=== PATIENT | male | born 1960 | race Caucasian/White ===

== ENCOUNTER → 2017-04-08 | Day surgery (SDC) | payer OTHER ==
[2017-04-08] VITALS (7 sets, daily range): BP systolic 121–142; BP diastolic 68–78; PULSE 60; RESP 16–18; O2SAT 93–95
[~2017-04-08] MED LIST: 0.9% Sodium Chloride 1,000 ML IV PRN; 0.9% Sodium Chloride 1,000 ML IV SCH; 0.9% Sodium Chloride 250 ML ONE; AMIO100T4 PO; ASPI-973 PO; Bupivacaine-MPF 0.5% 30 mL Inj ONE; FLEC100T2 PO; FUR20 PO; Heparin 10,000 Unit/1,000 mL NS Premix IV ONE; LISI-571 PO; METO100T3 PO; MULT-1104 PO; Ondansetron 2 mg/mL 2 mL Inj IVPUSH PRN; Vancomycin 1,000 mg Inj ONE; Vancomycin Inj 1,000 MG in IV Premix 1 EACH IV ONE; Water for Injection 50 ML IV ONE; fentaNYL-PF 50 mCg/mL 2 mL Inj ONE
[2017-04-08 08:44] LABS: BASOPHILS % (AUTO) 0.5 % (0-3); EOSINOPHILS % (AUTO) 3.1 % (0-5); MONOCYTES % (AUTO) 8.9 % (4-12); Mean Corpuscular Hemoglobin 36.1 pg (27.0-35.0); Mean Corpuscular Volume 102.1 fL (81-100); NEUTROPHILS % (AUTO) 68.1 % (40-74); Platelet Count 163 bil/L (150-400)
[2017-04-08 08:59] LABS: INR 0.95 ratio
--- NOTE | 2017-04-08 15:02 | OP ---
[address] [address] OPERATIVE REPORT PATIENT: LARRY TEMPLETON : 1960 MR#: [id number] ADMIT: 04/08/2017 JOB ID: [id number] DATE OF SURGERY: 04/08/2017 PREOPERATIVE DIAGNOSIS(ES): Implantable cardioverter-defibrillator battery depletion. POSTOPERATIVE DIAGNOSIS(ES): Implantable cardioverter-defibrillator battery depletion.. PROCEDURE PERFORMED: Dual-chamber ICD generator replacement. SURGEON: Brendan Gallegos MD. MECHANICAL MAINTENANCE ENGINEER: Sky Rodriguez. IMPLANTED DEVICE: [employer] pulse generator, model CD 2411-36Q, serial #[id number]. EXPLANTED DEVICE: [employer] pulse generator, model CD 2211-36Q, serial #[id number]. CHRONIC LEAD: Right atrial lead, [employer], 1888TC, 52 cm, serial #[id number] RV lead, [employer] 7122Q, 58 cm, serial #[id number]. ANESTHESIA: Bolus dosing of Versed and fentanyl achieved an appropriate level of sedation.. INDICATION: The patient is a pleasant, 56-year-old gentleman with ventricular tachycardia and a dual-chamber that has reached VANNESA. After discussion of risks and benefits of generator replacement, he opted to proceed. PROCEDURAL DESCRIPTION: Following informed consent, the patient was taken to the EP laboratory in a sedated state, where he was prepped in the usual sterile fashion. The left infraclavicular surgical scar was infiltrated with 30 cc of a 50/50 mixture of bupivacaine and lidocaine. Once adequate anesthesia had been achieved, a 3 cm incision was performed overlying the previous surgical scar. This was carried down to the capsule and the leads and generator were freed loose of adhesions. The leads were inspected and shown to be intact. The leads were disconnected from the generator. The pocket was copiously with antibiotic solution. The two chronic leads were then connected to a new pulse generator and the entire system was replaced into the capsule. The incision was closed with running layers of absorbable suture. The wound was dressed with skin adhesive and a small dressing. At the end of the procedure, the needle, sponge, and instrument counts were all correct. The leads were tested through the device and showed excellent sensing threshold and impedances. COMPLICATIONS: None. BLOOD LOSS: Negligible. DEVICE MEASURED DATA: 1. Right atrial lead 1.1 mV, 540 ohms, 1 V at 0.5 msec. 2. RV lead 11.6 mV, 440 ohms, 0.75 V at 0.5 msec. FINAL PROGRAM PARAMETERS: 1. DDDR 60-130 beats per minute. 2. VF zone at 220 beats per minute with ATP during charge followed by shocks. 3. VT zone at 171 beats per minute with ATP followed by shocks. IMPRESSION: Successful implantable cardioverter-defibrillator generator replacement. PLAN: 1. Recovery and discharge from the [facility]. 2. Doxycycline 100 p.o. daily x7 days. 3. Wound check in one week. ATTENDING STATEMENT: Brendan Gallegos MD, electrophysiology attending, was present for and supervised/performed all aspects of this procedure.
== END | disposition home or self-care (01) ==
LOC: SOUO 00:10
PROVIDERS: ATTEND Internal Medicine Cardiovascular Disease
DX: Z45.02 Encounter for adjustment and management of automatic implantable cardiac defibrillator (principal); I48.0 Paroxysmal atrial fibrillation; I47.2 Ventricular tachycardia; I35.0 Nonrheumatic aortic (valve) stenosis; I10 Essential (primary) hypertension; Z86.718 Personal history of other venous thrombosis and embolism; Z79.899 Other long term (current) drug therapy; Z87.891 Personal history of nicotine dependence; Z79.82 Long term (current) use of aspirin
CPT/HCPCS: 33263; 36415; 80048; 85025; 85610; 93005; 99152; 99153; C1721; J1644; J2250; J3010; J3370; J7050